=== PATIENT | female | born 1990 | race American Indian/Alaskan Native ===

== ENCOUNTER 2018-07-02 10:45 | Emergency (ER) | payer SELFPAY ==
[2018-07-02 10:49] VITALS: O2SAT 100
[2018-07-02 12:09] LABS: BASO % 0.4 % (0.0-2.0); EOS # 0.1 K/uL (0.0-0.7); EOS % 0.9 % (0.0-4.0); LYMPH # 1.2 K/uL (1.0-4.3); LYMPH % 20.3 % (20.0-40.0); MEAN CORPUSCULAR HEMOGLOBIN 30.2 pg (27.0-31.0); MEAN CORPUSCULAR HGB CONC 33.6 g/dL (33.0-37.0); MEAN PLATELET VOLUME 7.5 fl (7.2-11.7); MONO # 0.4 K/uL (0.0-0.8); MONO % 6.1 % (0.0-10.0); NEUT # 4.4 K/uL (1.8-7.0); NEUT % 72.3 % (50.0-75.0); RBC 4.31 Mil/uL (3.80-5.20); WHITE BLOOD COUNT 6.1 K/uL (4.8-10.8)
[2018-07-02 12:19] LABS: BLOOD UREA NITROGEN 7 mg/dl (7-17); CALCIUM 9.2 mg/dL (8.4-10.2); GFR NON-AFRICAN AMERICAN > 60
--- NOTE | 2018-07-02 12:38 | ED PDOC ---
HPI: Female Pain Time Seen by Provider: 07/02/18 10:55 Chief Complaint (Nursing): Female Genitourinary Chief Complaint (Provider): Female Genitourinary History Per: Patient History/Exam Limitations: no limitations Onset/Duration Of Symptoms: Hrs (x 5) Current Symptoms Are (Timing): Still Present Quality Of Discomfort: "Pain" Additional Complaint(s): 28 year old female presents to the ED with lower abdominal pain and vaginal bleeding associated with nausea since this morning. Her period is normally regular and she was supposed to get it on June 21. Patient took a test at home and it was negative. She started to bleed this morning but it was heavier and more painful than her usual period, ranked at 6/10. Patient took no medications prior to arrival. PMD: none Abnormal Vaginal Bleeding: Yes Past Medical History Reviewed: Historical Data, Nursing Documentation, Vital Signs Vital Signs: Last Vital Signs Temp 96.5 F L 07/02/18 10:48 Pulse 62 07/02/18 10:48 Resp 17 07/02/18 10:48 BP 113/53 L 07/02/18 10:48 Pulse Ox 100 07/02/18 10:48 - Medical History PMH: No Chronic Diseases - Surgical History Surgical History: No Surg Hx - Family History Family History: States: Unknown Family Hx - Home Medications Home Medications: Ambulatory Orders Medication Instructions Recorded Naproxen 500 mg PO BID PRN #20 tab 07/02/18 - Allergies Allergies/Adverse Reactions: Allergies Allergy/AdvReac Type Severity Reaction Status Date / Time Penicillins Allergy RASH Verified 07/02/18 11:20 Review of Systems ROS Statement: Except As Marked, All Systems Reviewed And Found Negative Gastrointestinal: Positive for: Abdominal Pain Genitourinary Female: Positive for: Vaginal Bleeding Physical Exam - Reviewed Nursing Documentation Reviewed: Yes Vital Signs Reviewed: Yes - Physical Exam Comments: GENERAL APPEARANCE: Patient is awake, alert, oriented x 3, in no acute distress. SKIN: Warm, dry; (-) cyanosis. EYES: (-) conjunctival pallor. ENMT: Mucous membranes _moist. Airway patent: (-) stridor. Pharynx: (-) swelling, (-) erythema. NECK: (-) tenderness, (-) stiffness, (-) lymphadenopathy. CHEST AND RESPIRATORY: (-) wheezing; (-) rales, (-) rhonchi, (-) rub; breath sounds equal bilaterally. HEART AND CARDIOVASCULAR: (-) irregularity; (-) murmur, (-) gallop. ABDOMEN AND GI: Soft; (+) mild suprapubic tenderness. EXTREMITIES: (-) deformity, (-) edema. NEURO AND PSYCH: Mental status as above; (-) focal findings. - Laboratory Results Result Diagrams: 07/02/18 12:00 07/02/18 12:00 Urine POC: Negative Urine dip results: Positive for: Leukocyte Esterase (trace), Blood (large). Negative for: Nitrate, Ketones, Glucose, Bilirubin, Protein - ECG O2 Sat by Pulse Oximetry: 100 (RA) Pulse Ox Interpretation: Normal Medical Decision Making Medical Decision Makin:21 Impression: abdominal pain and vaginal bleeding Differential diagnoses: Irregular menses vs miscarriage --Blood type --BMP --Beta-HCG --Urine preg --Urine dip --Tylenol 650 mg PO --Urine cx --UA 1240 Udip reviewed. U/A and U/C ordered. Upreg: negative 1430 Labs reviewed. H&H stable. No leukocytosis. Trace leukocytes on U/A with presence of squamous epithelial cells. Probable contamination. U/C pending. (+) hematuria, likely due to menses On re-evaluation, patient reports improvement of symptoms. On exam, patient remains AAOx3, in no acute distress. Lungs CTA, cardiac RRR, abdomen soft, nontender, repeat neuro exam shows no focal findings. Vitals stable. Lab/Diagnostic results d/w with the patient in great detail. Diagnosis of menstrual cramps, late menstrual period d/w patient. Based on history, exam, and diagnostic results, plan will be for outpatient follow up. Patient instructed to follow up with PMD / referral provided / the clinic in 1-2 days without fail. Advised to take medication as prescribed. Return to the emergency room at any time for any new or worsening symptoms. Patient states she agrees with and understandings discharge instructions. States that she agrees with the plan and disposition. Verbalized and repeated discharge instructions and plan. I have given the patient opportunity to ask any additional questions. Scribe Attestation: Documented by Carey Adams, acting as a scribe for Vandana Beach PA-C Provider Scribe Attestation: All medical record entries made by the Scribe were at my direction and personally dictated by me. I have reviewed the chart and agree that the record accurately reflects my personal performance of the history, physical exam, medical decision making, and the department course for this patient. I have also personally directed, reviewed, and agree with the discharge instructions and disposition. Disposition - Clinical Impression Clinical Impression: Menstrual period late, Menstrual cramps - Patient ED Disposition Is Patient to be Admitted: No Counseled Patient/Family Regarding: Studies Performed, Diagnosis, Need For Followup, Rx Given - Disposition Referrals: [facility] [Outside] [facility] [Outside] Disposition: Routine/Home Disposition Time: 14:35 Condition: STABLE Additional Instructions: The emergency medical care you received today was directed towards your acute symptoms. If you were prescribed medication, please fill it at the pharmacy and take it as directed. It may take several days for your symptoms to resolve. Return to emergency department if your symptoms worsen, do not improve, or if you have any other problems. Please contact your doctor / referred provider / clinic in 2 days for further evaluation. The treatement in the emergency department cannot replace ongoing medical care by a primary doctor outside of the emergency department. Prescriptions: Naproxen 500 mg PO BID PRN #20 tab PRN Reason: Pain, Moderate (4-7) Instructions: Absent or Irregular Periods, Menstrual Cramps Forms: [employer] (Mongolian) Print Language: TURKMEN - POA Present On Arrival: None Results - Lab Results Lab Results: 07/02/18 07/02/18 07/02/18 13:55 12:00 12:00 WBC 6.1 RBC 4.31 Hgb 13.0 Hct 38.8 MCV 90.0 MCH 30.2 MCHC 33.6 RDW 13.0 Plt Count 247 MPV 7.5 Neut % (Auto) 72.3 Lymph % (Auto) 20.3 [place] % (Auto) 6.1 Eos % (Auto) 0.9 Baso % (Auto) 0.4 Neut # (Auto) 4.4 Lymph # (Auto) 1.2 [place] # (Auto) 0.4 Eos # (Auto) 0.1 Baso # (Auto) 0.0 Sodium Potassium Chloride Carbon Dioxide Anion Gap BUN Creatinine Est GFR ( Amer) Est GFR (Non-Af Amer) Random Glucose Calcium Beta HCG, Quant Urine Color Yellow Urine Clarity Cloudy Urine pH 7.0 Ur Specific [place] 1.013 Urine Protein 30 Urine Glucose (UA) Neg Urine Ketones Negative Urine Blood Large Urine Nitrate Negative Urine Bilirubin Negative Urine Urobilinogen 0.2-1.0 Ur Leukocyte Esterase Trace Urine RBC (Auto) 224 H Urine Microscopic WBC 11 H Ur Squamous Epith Cells 7 H Urine Bacteria Rare Blood Type A POSITIVE Antibody Screen Negative BBK History Checked No verified bt 07/02/18 07/02/18 12:00 11:48 WBC RBC Hgb Hct MCV MCH MCHC RDW Plt Count MPV Neut % (Auto) Lymph % (Auto) [place] % (Auto) Eos % (Auto) Baso % (Auto) Neut # (Auto) Lymph # (Auto) [place] # (Auto) Eos # (Auto) Baso # (Auto) Sodium 140 Potassium 3.8 Chloride 105 Carbon Dioxide 27 Anion Gap 12 BUN 7 Creatinine 0.6 L Est GFR ( Amer) > 60 Est GFR (Non-Af Amer) > 60 Random Glucose 96 Calcium 9.2 Beta HCG, Quant < 2.39 Urine Color Urine Clarity Urine pH Ur Specific [place] Urine Protein Urine Glucose (UA) Urine Ketones Urine Blood Urine Nitrate Urine Bilirubin Urine Urobilinogen Ur Leukocyte Esterase Urine RBC (Auto) Urine Microscopic WBC Ur Squamous Epith Cells Urine Bacteria Blood Type Antibody Screen BBK History Checked
[2018-07-02 14:15] LABS: SQUAMOUS EPITHIAL 7 /hpf (0-5); URINE BACTERIA RARE (<OCC); URINE BILIRUBIN NEGATIVE (NEGATIVE); URINE BLOOD LARGE (NEGATIVE); URINE CLARITY CLOUDY (Clear); URINE COLOR YELLOW (YELLOW); URINE GLUCOSE (UA) NEG (Normal); URINE LEUKOCYTE ESTERASE TRACE Leu/uL (Negative); URINE PROTEIN 30 mg/dL (NEGATIVE); URINE UROBILINOGEN 0.2-1.0 mg/dL (0.2-1.0)
[2018-07-02 15:33] VITALS: BP 122/70; PULSE 70; RESP 18; TEMP 98
== END 2018-07-02 15:27 | disposition home or self-care (01) ==
LOC: H.ER 10:45
DX: N92.6 Irregular menstruation, unspecified (principal)